=== PATIENT | female | born 2000 | race Caucasian/White ===

== ENCOUNTER 2020-08-08 15:31 | Outpatient (CLI) | payer OTHER, SELFPAY ==
--- NOTE | ~2020-08-08 | US_ITS ---
EXAMINATION: US breast LT limited HISTORY: Palpable lump at the 3:00 location of the left breast near the nipple. TECHNIQUE: Limited left breast ultrasound is performed. FINDINGS: There is a 1.2 x 1.0 x 0.5 cm oval, circumscribed, parallel, isoechoic mass with no posteri or features or internal vascularity at the 3:00 location near the nipple corresponding to the palpabl e abnormality of concern. Imaging features are suggestive of a fibroadenoma versus dense breast tissu e. IMPRESSION: Probably benign left breast mass. Continue clinical examination and targeted left breast ultrasound s ix months are recommended. BI-RADS category 3, probably benign findings. Reviewed, dictated and finalized at location A. ER [facility] IMPRESSION: Probably benign left breast mass. Continue clinical examination and targeted le ft breast ultrasound six months are recommended. BI-RADS category 3, probably benign findings.
== END 2020-08-08 15:32 | disposition home or self-care (01) ==
PROVIDERS: Visit Provider Obstetrics & Gynecology
DX: N63.20 Unspecified lump in the left breast, unspecified quadrant (principal); R92.8 Other abnormal and inconclusive findings on diagnostic imaging of breast
CPT/HCPCS: 76642

== ENCOUNTER 2023-03-18 12:18 | Outpatient (CLI) | payer OTHER, SELFPAY ==
--- NOTE | ~2023-03-18 | US_ITS ---
EXAMINATION: US breast LT limited HISTORY: Palpable lump at the 3:00 location of the left breast TECHNIQUE: Limited left breast ultrasound is performed. COMPARISON: 08/08/2020 FINDINGS: No cystic or solid mass is identified in the area of palpable concern. There is normal-appe aring dense fibroglandular tissue. IMPRESSION: No specific sonographic correlate is identified for the reported palpable abnormality of concern. Fur ther evaluation at this time should be based on clinical assessment. Continued follow-up physical exa mination is recommended. BI-RADS Category 1: Negative Reviewed, dictated and finalized at location A. IMPRESSION: No specific sonographic correlate is identified for the reported palpable abnor mality of concern. Further evaluation at this time should be based on clinical assessment. Continued follow-up physical examination is recommended. BI-RADS Category 1: Negative
== END 2023-03-18 12:19 | disposition home or self-care (01) ==
LOC: ANHIMG 12:25
PROVIDERS: PCP Nurse Practitioner Family; Visit Provider Obstetrics & Gynecology Gynecology
DX: N63.20 Unspecified lump in the left breast, unspecified quadrant (principal)
CPT/HCPCS: 76642

== ENCOUNTER 2024-01-25 12:58 | Outpatient (CLI) | payer OTHER, SELFPAY ==
--- NOTE | ~2024-01-25 | XR_ITS ---
EXAMINATION: XR scoliosis survey DATE: 01/25/2024 13:25 INDICATION: Scoliosis. Spasm of thoracic muscle. TECHNIQUE: Anteroposterior and lateral views of the entire spine standing with breast grigsby were ob tained. COMPARISON: Radiographs 05/04/2013 FINDINGS: There is no limb length discrepancy. 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 There are 5 nonrib- bearing lumbar segments. There is 38 degrees dextroscoliosis from T5 to T11 and 41 degrees levoscolio sis from T11 to L3 by the Bello method. IMPRESSION: 1. Scoliosis. Reviewed, dictated and finalized at location A. IMPRESSION: 1. Scoliosis.
== END 2024-01-25 12:59 | disposition home or self-care (01) ==
LOC: ANHIMG 13:04
PROVIDERS: PCP Nurse Practitioner Family; Visit Provider Nurse Practitioner Family
DX: M62.830 Muscle spasm of back (principal); M41.9 Scoliosis, unspecified; M41.85 Other forms of scoliosis, thoracolumbar region
CPT/HCPCS: 72082